=== PATIENT | female | born 1960 | race Caucasian/White ===

== ENCOUNTER → 2020-10-05 | Outpatient (CLI) | payer OTHER ==
[~2020-10-05] MED LIST: ATEN25 PO; Crutch1 EACH MISC; LOVA40 PO; NAPR500 PO; Norco 5-325 Ta1 EACH PO; Zofran Odt4 MG PO
[2020-10-05 14:16] LABS: Source, Urine Clean Catch
[2020-10-05 14:37] LABS: Appearance, Urine Hazy (Clear); Bacteria Rare /hpf; Bilirubin, Urine Neg (Neg); Blood, Urine 2+ (Neg); Color, Urine Yellow (P-Yellow); Glucose Qualitative, Urine Neg (Normal); Ketones, Urine Neg (Neg); Leukocyte Esterase, Urine 2+ (Neg); Nitrite, Urine Neg (Neg); Protein, Urine Neg (Neg); Specific Gravity, Urine 1.015 (1.003-1.022); Squamous Epithelial Cells Rare /hpf (Few); Urobilinogen, Urine NORM (Normal)
== END ==
LOC: LAB SHORT 13:58 → LAB EV 13:58
PROVIDERS: Nurse Practitioner Family
DX: L03.116 Cellulitis of left lower limb (principal); I77.6 Arteritis, unspecified
CPT/HCPCS: 81001

== ENCOUNTER → 2022-06-20 | Outpatient (CLI) | payer OTHER ==
[2022-06-20 11:15] LABS: BASOPHILS ABSOLUTE AUTO 0.04 K/mm3 (0.00-0.23); BASOPHILS PERCENT AUTO 1 % (0-2); EOSINOPHILS ABSOLUTE AUTO 0.08 K/mm3 (0.00-0.68); EOSINOPHILS PERCENT AUTO 2 % (0-6); Hematocrit 31.8 % (33.0-51.0); Hemoglobin 10.9 g/dL (11.5-16.0); IMMATURE GRAN PERCENT AUTO 0 % (0-1); LYMPHOCYTES ABSOLUTE AUTO 0.83 K/mm3 (0.84-5.20); LYMPHOCYTES PERCENT AUTO 20 % (21-46); MONOCYTES ABSOLUTE AUTO 0.55 K/mm3 (0.16-1.47); MONOCYTES PERCENT AUTO 13 % (4-13); Mean Corpuscular HGB 33.3 pg (26.0-34.0); Mean Corpuscular HGB Conc 34.3 g/dL (31.5-36.5); Mean Corpuscular Volume 97 fL (80-100); Mean Platelet Volume 10.8 fL (9.1-12.4); NEUTROPHILS ABSOLUTE AUTO 2.72 K/mm3 (1.96-9.15); NEUTROPHILS PERCENT AUTO 65 % (41-73); Platelet Count 114 K/mm3 (150-400); RDW Coefficient Variation 12.9 % (11.7-14.2); RDW Standard Deviation 46.1 fL (35.1-46.3); Red Blood Cell Count 3.27 M/mm3 (3.80-5.20); White Blood Cell Count 4.22 K/mm3 (4.00-11.30)
[2022-06-20 11:28] LABS: Albumin, Blood 3.5 g/dL (3.4-5.0); Albumin/Globulin Ratio 0.8 (0.8-1.8); Bilirubin, Total 2.3 mg/dL (0.1-1.0); Bun/Creatinine Ratio 17.9 (12.0-20.0); Calcium, Blood 9.6 mg/dL (8.5-10.1); Creatinine, Blood 1.06 mg/dL (0.40-1.00); Globulin, Blood 4.5 g/dL (2.2-4.0)
== END | disposition home or self-care (01) ==
LOC: LAB SHORT 11:08
PROVIDERS: Chiropractor
DX: N39.0 Urinary tract infection, site not specified (principal)
CPT/HCPCS: 80053; 85025

== ENCOUNTER → 2022-07-19 | Outpatient (CLI) | payer OTHER ==
[2022-07-19 09:49] LABS: BASOPHILS ABSOLUTE AUTO 0.02 K/mm3 (0.00-0.23); BASOPHILS PERCENT AUTO 0 % (0-2); EOSINOPHILS ABSOLUTE AUTO 0.01 K/mm3 (0.00-0.68); EOSINOPHILS PERCENT AUTO 0 % (0-6); Hematocrit 28.9 % (33.0-51.0); IMMATURE GRAN ABSOLUTE AUTO 0.03 K/mm3 (0.00-0.10); IMMATURE GRAN PERCENT AUTO 0 % (0-1); LYMPHOCYTES ABSOLUTE AUTO 0.61 K/mm3 (0.84-5.20); LYMPHOCYTES PERCENT AUTO 9 % (21-46); MONOCYTES ABSOLUTE AUTO 0.56 K/mm3 (0.16-1.47); MONOCYTES PERCENT AUTO 8 % (4-13); Mean Corpuscular HGB 33.1 pg (26.0-34.0); Mean Corpuscular HGB Conc 34.6 g/dL (31.5-36.5); Mean Corpuscular Volume 96 fL (80-100); Mean Platelet Volume 10.5 fL (9.1-12.4); NEUTROPHILS ABSOLUTE AUTO 5.49 K/mm3 (1.96-9.15); NEUTROPHILS PERCENT AUTO 82 % (41-73); Platelet Count 199 K/mm3 (150-400); RDW Coefficient Variation 13.1 % (11.7-14.2); RDW Standard Deviation 45.7 fL (35.1-46.3); Red Blood Cell Count 3.02 M/mm3 (3.80-5.20); White Blood Cell Count 6.72 K/mm3 (4.00-11.30)
[2022-07-19 09:59] LABS: Albumin, Blood 3.4 g/dL (3.4-5.0); Albumin/Globulin Ratio 0.8 (0.8-1.8); Bilirubin, Total 2.5 mg/dL (0.1-1.0); Bun/Creatinine Ratio 17.6 (12.0-20.0); Calcium, Blood 8.8 mg/dL (8.5-10.1); Creatinine, Blood 1.93 mg/dL (0.40-1.00); Globulin, Blood 4.4 g/dL (2.2-4.0); Potassium, Blood 4.2 mmol/L (3.5-5.5); Total Protein, Blood 7.8 g/dL (6.4-8.2)
[2022-07-19 10:49] LABS: Source, Urine Clean Catch
[2022-07-19 11:42] LABS: Bacteria Mod /hpf; Red Blood Cells, Urine 50-100 /hpf (0-2); Squamous Epithelial Cells Few /hpf (Few)
[2022-07-19 11:43] LABS: Yeast/Fungi Urine Few /hpf
== END | disposition home or self-care (01) ==
LOC: LAB SHORT 09:42 → LAB 09:42
PROVIDERS: Physician Assistant
DX: R31.9 Hematuria, unspecified (principal)
CPT/HCPCS: 80053; 81015; 85025; 87086

== ENCOUNTER 2022-07-25 18:59 | Inpatient (IN) | payer OTHER ==
[~2022-07-25] VITALS: Ht 167.6 cm; Wt 74.2 kg
[2022-07-25 20:07] LABS: BASOPHILS ABSOLUTE AUTO 0.02 K/mm3 (0.00-0.23); BASOPHILS PERCENT AUTO 0 % (0-2); Hemoglobin 10.3 g/dL (11.5-16.0); LYMPHOCYTES PERCENT AUTO 7 % (21-46); MONOCYTES ABSOLUTE AUTO 0.54 K/mm3 (0.16-1.47); MONOCYTES PERCENT AUTO 8 % (4-13); Mean Corpuscular HGB 32.4 pg (26.0-34.0); Mean Corpuscular HGB Conc 34.3 g/dL (31.5-36.5); Mean Corpuscular Volume 94 fL (80-100); Mean Platelet Volume 11.2 fL (9.1-12.4); Platelet Count 111 K/mm3 (150-400); RDW Coefficient Variation 13.9 % (11.7-14.2); RDW Standard Deviation 48.2 fL (35.1-46.3); Red Blood Cell Count 3.18 M/mm3 (3.80-5.20); White Blood Cell Count 6.92 K/mm3 (4.00-11.30)
[2022-07-25 20:13] LABS: EOSINOPHILS PERCENT AUTO 0 % (0-6); IMMATURE GRAN ABSOLUTE AUTO 0.03 K/mm3 (0.00-0.10); IMMATURE GRAN PERCENT AUTO 0 % (0-1); NEUTROPHILS ABSOLUTE AUTO 5.83 K/mm3 (1.96-9.15); NEUTROPHILS PERCENT AUTO 84 % (41-73)
[2022-07-25 20:26] LABS: Alanine Aminotransfer (ALT/SGP 46 U/L (12-78); Albumin, Blood 2.6 g/dL (3.4-5.0); Albumin/Globulin Ratio 0.6 (0.8-1.8); Alk Phos 88 U/L (50-136); Anion Gap 15 mmol/L (6-16); Aspartate Aminotrans (AST/SGOT 102 U/L (12-37); Blood Urea Nitrogen 107 mg/dL (8-24); Bun/Creatinine Ratio 33.6 (12.0-20.0); CO2, Blood 15 mmol/L (21-32); Calcium, Blood 9.1 mg/dL (8.5-10.1); Chloride, Blood 109 mmol/L (98-108); Creatinine, Blood 3.18 mg/dL (0.40-1.00); Globulin, Blood 4.5 g/dL (2.2-4.0); Glomerular Filtration Rate 16 (60-); Glucose, Blood 173 mg/dL (70-99); Potassium, Blood 4.4 mmol/L (3.5-5.5); Sodium, Blood 139 mmol/L (136-145); Total Protein, Blood 7.1 g/dL (6.4-8.2)
[2022-07-25 21:15] LABS: Base Excess Venous -10.6 mmol/L; Bicarbonate Venous 16.9 mmol/L (24.0-30.0); PCO2 Venous 26.6 mmHg (38-42); pH Blood Venous 7.36 (7.34-7.37)
[2022-07-25 21:23] LABS: Ethanol (Alcohol), Blood, Med <3 mg/dL
[2022-07-25 23:53] LABS: Source, Urine Condom Cath
[2022-07-25 23:57] LABS: Bilirubin, Urine Neg (Neg); Blood, Urine 5+ (Neg); Glucose Qualitative, Urine Neg (Neg); Ketones, Urine Neg (Neg); Leukocyte Esterase, Urine 1+ (Neg); Nitrite, Urine Neg (Neg); Protein, Urine 2+ (Neg); Specific Gravity, Urine 1.015 (1.003-1.022); Urobilinogen, Urine 1+ (Normal)
[2022-07-25 23:59] LABS: Appearance, Urine Hazy (Clear); Color, Urine Yellow (P-Yellow)
[2022-07-26 00:05] LABS: Red Blood Cells, Urine 25-50 /hpf (0-2)
[2022-07-26 00:06] LABS: Amorphous Light (0-Heavy); Bacteria Mod /hpf; Squamous Epithelial Cells Few /hpf (Few)
[2022-07-26 00:07] LABS: U Amphetamine Screen Not Detected; U Barbituate Screen Not Detected; U Benzodiazapine Screen DETECTED; U Buprenorphine Screen Not Detected; U Cannabinoids Screen Not Detected; U Cocaine Screen Not Detected; U Methadone Screen Not Detected; U Methamphetamine Screen Not Detected; U Opiates Screen DETECTED; U Oxycodone Screen DETECTED; U Phencyclidine Screen Not Detected; U Propoxyphene Screen Not Detected
[2022-07-26 04:36] LABS: Hematocrit 26.6 % (33.0-51.0); Hemoglobin 9.2 g/dL (11.5-16.0); Mean Corpuscular HGB 32.7 pg (26.0-34.0); Mean Corpuscular HGB Conc 34.6 g/dL (31.5-36.5); Mean Corpuscular Volume 95 fL (80-100); Mean Platelet Volume 11.6 fL (9.1-12.4); Platelet Count 76 K/mm3 (150-400); RDW Coefficient Variation 14.1 % (11.7-14.2); Red Blood Cell Count 2.81 M/mm3 (3.80-5.20); White Blood Cell Count 7.21 K/mm3 (4.00-11.30)
[2022-07-26 04:46] LABS: Albumin, Blood 2.1 g/dL (3.4-5.0); Albumin/Globulin Ratio 0.5 (0.8-1.8); Bilirubin, Total 2.8 mg/dL (0.1-1.0); Bun/Creatinine Ratio 35.7 (12.0-20.0); Creatinine, Blood 2.83 mg/dL (0.40-1.00); Globulin, Blood 3.9 g/dL (2.2-4.0)
--- NOTE | 2022-07-26 05:35 | NUR ---
CARE ASSUMPTION/SHIFT SUMMARY: RECEIVED REPORT FROM JOSE PEARSON IN ED. PATIENT TRANSPORTED BY GURNEY AND SLID TO PCU BED WITH 5 STAFF ASSIST. PATIENT CRYING OUT "NO!" AND "OUCH!" PATIENT APPEARS VERY PAINFUL BUT SAYS, "I'M OKAY" OR DENIES PAIN DESPITE BEING SENSITIVE TO LIGHT TOUCH. ALERT TO SELF. CIWA PROTOCOL IN PLACE. THIRD SPACING PRESENT AND LEFT LEG MORE EDEMATOUS AND HOT TO THE TOUCH THAN RIGHT LEG. CALL PLACED TO DR. YORK TO UPDATE ON PATIENT STATUS AND RECEIVED NEW ORDERS FOR [facility] TO DETERMINE WHETHER PATIENT HAS RHABDO. PATIENT HAS HAD LITTLE URINE OUTPUT AND WAS STRAIGHT CATHED IN ED ~0100. DR. YORK DECLINED ANGUIANO ORDERS AT THIS TIME. VS STABLE, AFEBRILE, MAP >65, RR >20. PATIENT MORE ALERT AT THIS TIME BUT NONSENSICAL IN SPEECH. BED LOW AND ALARM SET. CALL LIGHT IN REACH. WILL CONTINUE TO MONITOR AND REPORT TO ONCOMING RN.
[2022-07-26 06:07] LABS: BAND PERCENT MAN 13 % (0-8); BASOPHILS PERCENT MAN 0 % (0-2); EOSINOPHILS PERCENT MAN 0 % (0-6); LYMPHOCYTES ABSOLUTE MAN 0.36 K/mm3 (0.84-5.20); LYMPHOCYTES PERCENT MAN 5 % (21-46); METAMYELOCYTE ABSOLUTE MAN 0.07 K/mm3 (0.00-0.00); METAMYELOCYTE PERCENT MAN 1 % (0-0); MONOCYTES ABSOLUTE MAN 0.07 K/mm3 (0.16-1.47); MONOCYTES PERCENT MAN 1 % (4-13); SEG NEUTROPHILS PERCENT MAN 80 % (41-73); TOTAL CELLS COUNTED 100
[2022-07-26 10:48] LABS: Hematocrit 27.6 % (33.0-51.0); Hemoglobin 9.5 g/dL (11.5-16.0); Mean Corpuscular HGB Conc 34.4 g/dL (31.5-36.5); Mean Corpuscular Volume 96 fL (80-100); Mean Platelet Volume 11.7 fL (9.1-12.4); Platelet Count 70 K/mm3 (150-400); RDW Coefficient Variation 14.4 % (11.7-14.2); RDW Standard Deviation 50.2 fL (35.1-46.3); Red Blood Cell Count 2.88 M/mm3 (3.80-5.20); White Blood Cell Count 7.72 K/mm3 (4.00-11.30)
[2022-07-26 11:04] LABS: Albumin/Globulin Ratio 0.5 (0.8-1.8); Bilirubin, Total 2.7 mg/dL (0.1-1.0); Bun/Creatinine Ratio 36.1 (12.0-20.0); C-REACTIVE PROTEIN, EXT RANGE 7.19 mg/dL (0.000-0.300); Creatinine, Blood 2.8 mg/dL (0.40-1.00); Globulin, Blood 3.7 g/dL (2.2-4.0); Magnesium, Blood 2.3 mg/dL (1.6-2.4); Phosphorus, Blood 3.9 mg/dL (2.5-4.9); Potassium, Blood 4.2 mmol/L (3.5-5.5); Total Protein, Blood 5.7 g/dL (6.4-8.2)
[2022-07-26 11:16] LABS: BAND PERCENT MAN 8 % (0-8); BASOPHILS PERCENT MAN 0 % (0-2); EOSINOPHILS PERCENT MAN 0 % (0-6); LYMPHOCYTES PERCENT MAN 6 % (21-46); MONOCYTES PERCENT MAN 6 % (4-13); SEG NEUTROPHILS PERCENT MAN 80 % (41-73); TOTAL CELLS COUNTED 100
[2022-07-26 11:21] LABS: EOSINOPHILS PERCENT AUTO 0 % (0-6); IMMATURE GRAN ABSOLUTE AUTO 0.05 K/mm3 (0.00-0.10); IMMATURE GRAN PERCENT AUTO 1 % (0-1); NEUTROPHILS ABSOLUTE AUTO 6.51 K/mm3 (1.96-9.15); NEUTROPHILS PERCENT AUTO 84 % (41-73)
[2022-07-26 12:19] LABS: Source, Urine Foley catheter
[2022-07-26 12:46] LABS: PO2 Arterial 91.9 mmHg (80-100); pH Blood Arterial 7.45 (7.35-7.45)
[2022-07-26 12:47] LABS: PCO2 Arterial 16.7 mmHg (35-45)
[2022-07-26 12:54] LABS: Bilirubin, Urine Neg (Neg); Blood, Urine 5+ (Neg); Glucose Qualitative, Urine Neg (Neg); Ketones, Urine Neg (Neg); Leukocyte Esterase, Urine Neg (Neg); Nitrite, Urine Neg (Neg); Protein, Urine 2+ (Neg); Specific Gravity, Urine 1.015 (1.003-1.022); Urobilinogen, Urine NORM (Normal)
[2022-07-26 13:35] LABS: Appearance, Urine Clear (Clear); Color, Urine Yellow (P-Yellow)
[2022-07-26 13:37] LABS: Red Blood Cells, Urine 50-100 /hpf (0-2)
[2022-07-26 13:38] LABS: Bacteria Mod /hpf; Squamous Epithelial Cells Few /hpf (Few)
--- NOTE | 2022-07-26 15:16 | NUR ---
TRANSFER: REPORT GIVEN TO YULY Montano RN. PT TRANSFERRED TO ICU 4 @6628.
--- NOTE | 2022-07-26 16:21 | NUR ---
NEW PT TRANSFER: PT ARRIVED TO UNIT AT 1508. PT LOOKS CONFUSED AND IS INCOHERENT IN HER SPEECH. THE PT IS RESPONDING TO PAIN OVER ENTIRE BODY; WITH EACH TOUCH PT IS MOANING IN PAIN. THE PT IS NOT ABLE TO FOLLOW SIMPLE COMANDS, LIKE ASKING HER TO OPEN HER EYES OR TO SQUEEZE MY HANDS. THE PT DID RESPOND TO HER NAME AFTER MULTPLE ATTEMPS BY THIS RN, AND REPLIED WITH "WHAT" AFTER THIS RESPONSE THE PT BECAME INCOHERENT IN HER SPEECH AGAIN. THE PT ARRIVED WITH SBP IN THE 80'S AND MAP AROUND 60-63; LEVOPHED WAS BROUGHT WITH THE PT DURING TRANSFER. A PICC LINE WAS PLACED BY LIANNA ANDERSON RN AND LEVOPHED WAS STARTED AT 5 MCG/MIN. PT RESPONDED WELL TO THIS AND NOW HER SBP IN THE 90-100'S WITH MAP 65<. THE PT IS PUTTING OUT URINE THAT IS NANO AND DARK. THE PT HAS HYPOACTIVE BS IN ALL FOUR QUADRANTS. THE PT HAS NOTED 2+ EDEMA IN THE BLE; PEDAL AND TIBIAL PULESE FOUND WITH DOPPLER BILATERALLY. THE PT HAS WARM EXTREMITIES AND CAP REFIL REMAINS < 3 SECONDS. WILL CONTINUE TO MONITOR THROUGHOUT THE SHIFT.
--- NOTE | 2022-07-26 16:48 | NUR ---
PT'S MOTHER MARILUZ AT BEDSIDE. PER MOTHER, PT HAS BEEN LIVING DOWNSTAIRS FROM HER IN MOTHER'S STUDIO APARTMENT. MOTHER REPORTS THAT PT HAS EXPERIENCED INCREASING BACK PAIN AND HAS BEEN DRINKING MORE FOLLOWING THE OF HER S/O. PT HAS BEEN IMMOBILE AND COUCHBOUND FOR 3+WEEKS. MOTHER REPORTS PT'S SPEECH HAS BEEN INCOMPREHESIBLE FOR 3 WEEKS AND PT REPORTEDLY JUST MOANS IN PAIN. MOTHER BRINGS IN "ALL OF PT'S MEDICATION BOTTLES", I BOTTLE OF 25 MG ATENOLOL LAST FILLED IN 2020 SEVERAL DIFFERENT SIZED UNIDENTIFIED PILLS IN BOTTLE , 1 BOTTLE OF OXYCODONE-ACETAMINOPHEN 5-325 FILLED 07/20/22 ORDERED 1/2 TAB Q6PN, BOTTLE HAS ONE RED PILL IN IT, AND 1 BOTTLE OF CIPROFLAXIN PRESCRIBED 06/20/22 WITH 1/ UNIDENTIFIED WHITE PILL. PILL BOTTLES SENT HOME WITH PT'S MOTHER. PT'S SON REPORTS THAT PT DRINKS 1/2-1 PINT VODKA/DAILY. MOTHER EXPRESSES CONCERN REGARDING DISCHARGE PLANNING, DOES NOT FEEL LIKE SHE IS CAPABLE OF PROVIDING CARE PT IS NEEDING. REQUESTING INFORMATION REGARDING SHELTER PLACEMENT, WILL DISCUSS WITH CARE MANAGEMENT.
[2022-07-26 17:05] LABS: C-REACTIVE PROTEIN, EXT RANGE 6.65 mg/dL (0.000-0.300)
[2022-07-26 17:06] LABS: Bun/Creatinine Ratio 40.4 (12.0-20.0); Calcium, Blood 8.5 mg/dL (8.5-10.1); Creatinine, Blood 2.75 mg/dL (0.40-1.00)
--- NOTE | 2022-07-26 17:54 | NUR ---
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
[2022-07-27 03:28] LABS: Hematocrit 21.5 % (33.0-51.0); Hemoglobin 7.5 g/dL (11.5-16.0); Mean Corpuscular HGB 32.6 pg (26.0-34.0); Mean Corpuscular HGB Conc 34.9 g/dL (31.5-36.5); Mean Corpuscular Volume 94 fL (80-100); Platelet Count 55 K/mm3 (150-400); RDW Coefficient Variation 14.4 % (11.7-14.2); RDW Standard Deviation 48.9 fL (35.1-46.3); White Blood Cell Count 6.28 K/mm3 (4.00-11.30)
[2022-07-27 03:43] LABS: Alanine Aminotransfer (ALT/SGP 44 U/L (12-78); Albumin, Blood 2.3 g/dL (3.4-5.0); Albumin/Globulin Ratio 0.8 (0.8-1.8); Alk Phos 61 U/L (50-136); Anion Gap 11 mmol/L (6-16); Aspartate Aminotrans (AST/SGOT 128 U/L (12-37); Bilirubin, Total 2.8 mg/dL (0.1-1.0); Blood Urea Nitrogen 115 mg/dL (8-24); Bun/Creatinine Ratio 46.4 (12.0-20.0); CO2, Blood 20 mmol/L (21-32); CPK Creatine Kinase 421 U/L (26-193); Calcium, Blood 7.8 mg/dL (8.5-10.1); Chloride, Blood 115 mmol/L (98-108); Creatinine, Blood 2.48 mg/dL (0.40-1.00); Globulin, Blood 2.9 g/dL (2.2-4.0); Glomerular Filtration Rate 21 (60-); Glucose, Blood 217 mg/dL (70-99); Magnesium, Blood 2.3 mg/dL (1.6-2.4); Phosphorus, Blood 3.3 mg/dL (2.5-4.9); Potassium, Blood 3.2 mmol/L (3.5-5.5); Sodium, Blood 146 mmol/L (136-145); Total Protein, Blood 5.2 g/dL (6.4-8.2); Vancomycin, Random 15.5 ug/mL
[2022-07-27 04:23] LABS: BAND PERCENT MAN 8 % (0-8); BASOPHILS PERCENT MAN 0 % (0-2); EOSINOPHILS PERCENT MAN 0 % (0-6); LYMPHOCYTES ABSOLUTE MAN 0.25 K/mm3 (0.84-5.20); LYMPHOCYTES PERCENT MAN 4 % (21-46); MONOCYTES ABSOLUTE MAN 0.31 K/mm3 (0.16-1.47); MONOCYTES PERCENT MAN 5 % (4-13); NEUTROPHILS ABSOLUTE MAN 5.71 K/mm3 (1.96-9.15); SEG NEUTROPHILS PERCENT MAN 83 % (41-73); TOTAL CELLS COUNTED 100
--- NOTE | 2022-07-27 05:25 | NUR ---
SHIFT SUMMARY NO OVERNIGHT EVENTS. HAVE BEEN ABLE TO TITRATE LEVO DOWN FROM 7MCC/MIN TO 1MCC/MIN. WILL TRY TO TIRATE OFF. SODIUM BICARB IS STILL RUNNING @ 100. NOTIFIED MD OF MORNING LABS POTASSIUM IS 3.2 20 KCL WAS ORDERED. REPEAT LABS ORDERED FOR 1200. PT IS STILL CONFUSSED WITH INCOMPRENCABLE SPEECH. PT MOANS CONTINUOUSLY AND ANDSWERW YES TO NAME AND SAYS OK WHEN TRYING TO CONSOLE BUT OTHERWISE NO PURPOSEFUL INTERACTION. PT REMAINS ON RA O2 SATURATION >98. BLE DOPPLER PULSES. WILL CONTINUE TO MONITOR AND REPORT OFF TO ONCOMING RN.
--- NOTE | 2022-07-27 09:04 | NUR ---
AM NOTE... ASSUMED CARE OF PT AT 0700, THE PT IS A&O TO SELF AT THIS TIME. WHEN THE PT'S NAME IS STATED TO HER SHE WILL SAY "WHAT?!" THE PT WILL OPEN HER EYES AND LOOK AT STAFF WHEN ASKED BUT WILL NOT FOLLOW ANY OTHER COMMANDS, WHEN ASKED IF SHE COULD STATE HER LAST NAME AND THE PT STATED "I CAN'T!" AND STARTED MOANING. THE PT YELLS OUT AND MOANS WITH ANY SLIGHT TOUCH OR MOVEMENT BUT THE PT IS UNABLE TO LOCALIZE WHAT ACTUALLY HURTS. THE PT IS ON RA WITH O2 SATS >95% L/S CLEAR T/O. SHE IS IN SR IN THE 70'S WITH A STABLE BP MAPS >65 LEVOPHED WAS STOPPED AROUND 0600 PER NOC SHIFT RN REPORT. THE PT HAS 2+ EDEMA NOTED TO HER BLE, PULSES DOPPLER D/T THE EDEMA. BT PRESENT AND HYPOACTIVE, ABD IS VERY TENDER TO TOUCH, EVEN MORE TENDER TO PALPATION. THE PT'S ANGUIANO IS PATENT AND DRAINING TO GRAVITY. WILL CONTINUE TO MONITOR.
[2022-07-27 12:09] LABS: Hematocrit 21.5 % (33.0-51.0); Hemoglobin 7.6 g/dL (11.5-16.0)
[2022-07-27 12:30] LABS: Potassium, Blood 3.2 mmol/L (3.5-5.5)
[2022-07-27 12:43] LABS: BASOPHILS ABSOLUTE AUTO 0.01 K/mm3 (0.00-0.23); BASOPHILS PERCENT AUTO 0 % (0-2); Hematocrit 21.6 % (33.0-51.0); Hemoglobin 7.5 g/dL (11.5-16.0); LYMPHOCYTES ABSOLUTE AUTO 0.65 K/mm3 (0.84-5.20); LYMPHOCYTES PERCENT AUTO 14 % (21-46); MONOCYTES ABSOLUTE AUTO 0.24 K/mm3 (0.16-1.47); MONOCYTES PERCENT AUTO 5 % (4-13); Mean Corpuscular HGB 32.5 pg (26.0-34.0); Mean Corpuscular HGB Conc 34.7 g/dL (31.5-36.5); Mean Corpuscular Volume 94 fL (80-100); RDW Coefficient Variation 14.3 % (11.7-14.2); Red Blood Cell Count 2.31 M/mm3 (3.80-5.20); White Blood Cell Count 4.73 K/mm3 (4.00-11.30)
[2022-07-27 13:11] LABS: Albumin, Blood 2.5 g/dL (3.4-5.0); Albumin/Globulin Ratio 0.8 (0.8-1.8); Bilirubin, Total 2.9 mg/dL (0.1-1.0); Bun/Creatinine Ratio 50.2 (12.0-20.0); Calcium, Blood 8.2 mg/dL (8.5-10.1); Creatinine, Blood 2.33 mg/dL (0.40-1.00); Potassium, Blood 3.2 mmol/L (3.5-5.5); Total Protein, Blood 5.5 g/dL (6.4-8.2)
[2022-07-27 13:19] LABS: EOSINOPHILS PERCENT AUTO 0 % (0-6); IMMATURE GRAN ABSOLUTE AUTO 0.03 K/mm3 (0.00-0.10); IMMATURE GRAN PERCENT AUTO 1 % (0-1); Mean Platelet Volume 13.3 fL (9.1-12.4); NEUTROPHILS PERCENT AUTO 80 % (41-73)
[2022-07-27 13:21] LABS: Platelet Count 46 K/mm3 (150-400)
--- NOTE | 2022-07-27 17:55 | NUR ---
SHIFT SUMMARY... NO ACUTE NEGATIVE CHANGES NOTED THIS SHIFT. THE PT HAS NOT BEEN ON LEVOPHED SINCE 0600, THE PT'S BP HAS BEEN STABLE WITH MAPS >65. THE PT HAS BECOME MORE AWAKE AND ALERT THIS AFTERNOON, THE PT WOKE UP AND WAS TALKING IN SHORT SENTENCES WITH HER SON AND DAUGHTER WHEN THEY WERE HERE. THE PT CONTINUES TO YELL OUT AND MOAN WITH ANY LIGHT TOUCH OR MOVEMENT. DURING THE LAST ASSESSMENT OF THIS SHIFT THIS RN WAS ATTEMPTING TO PROVIDE THE PT ORAL CARE, THIS RN EXPLAINED TO THE PT WHAT ORAL CARE WAS AND ASKED THE PT TO OPEN HER MOUTH FOR THE SWAB, THE PT TIGHTENED HER LIPS AND TURNED HER HEAD AWAY FROM THIS RN. BUT WHEN THIS RN WAS ATTEMPTING TO ASSESS THE PT'S DRYWALL HANGER HELPER THE PT STATED "I CAN'T I DON'T KNOW WHAT YOU ARE ASKING ME TO DO." THIS RN ASKED THE PT "PLEASE SQUEEZE MY FINGERS" AND THE PT STATED AGAIN "I CAN'T I DON'T KNOW WHAT YOU ARE ASKING ME TO DO." THE PT'S ANGUIANO DRAINED 475MLS OF DARK YELLOW URINE THIS SHIFT. 2 OF THE PT'S BLOOD CULTURES CAME BACK POSITIVE FOR GRAM + COCCI IN CLUSTERS, PROVIDER IS AWARE. THE PT'S PLATELETS ALSO DROPPED DOWN TO 47, THE PROVIDER WAS NOTIFIED AND THE PT'S SUB Q HEPARIN WAS STOPPED AND SCDs WERE PLACED ON THE PT'S BLE. THE PT'S MOM, SON AND DAUGHTER WERE AT THE BEDSIDE THIS AFTERNOON THEY WERE UPDATED BY THE PROVIDER. WILL CONTINUE TO MONITOR UNTIL REPORT IS GIVEN TO ONCOMING RN.
[2022-07-27 18:55] LABS: Hematocrit 22.1 % (33.0-51.0); Hemoglobin 7.5 g/dL (11.5-16.0); Mean Corpuscular HGB 32.2 pg (26.0-34.0); Mean Corpuscular HGB Conc 33.9 g/dL (31.5-36.5); Mean Corpuscular Volume 95 fL (80-100); Mean Platelet Volume 12.6 fL (9.1-12.4); RDW Coefficient Variation 14.4 % (11.7-14.2); Red Blood Cell Count 2.33 M/mm3 (3.80-5.20); White Blood Cell Count 4.28 K/mm3 (4.00-11.30)
[2022-07-27 19:03] LABS: Platelet Count 40 K/mm3 (150-400)
[2022-07-27 19:26] LABS: BAND PERCENT MAN 10 % (0-8); BASOPHILS PERCENT MAN 0 % (0-2); EOSINOPHILS PERCENT MAN 0 % (0-6); LYMPHOCYTES % ATYPICAL MANUAL 2 % (0-0); LYMPHOCYTES ABSOLUTE MAN 0.42 K/mm3 (0.84-5.20); LYMPHOCYTES PERCENT MAN 8 % (21-46); MONOCYTES ABSOLUTE MAN 0.25 K/mm3 (0.16-1.47); MONOCYTES PERCENT MAN 6 % (4-13); MYELOCYTE ABSOLUTE MAN 0.04 K/mm3 (0.00-0.00); MYELOCYTE PERCENT MAN 1 % (0-0); NEUTROPHILS ABSOLUTE MAN 3.55 K/mm3 (1.96-9.15); SEG NEUTROPHILS PERCENT MAN 73 % (41-73); TOTAL CELLS COUNTED 100
[2022-07-28 03:29] LABS: Hematocrit 20.7 % (33.0-51.0); Hemoglobin 7.1 g/dL (11.5-16.0); Mean Corpuscular HGB 32.3 pg (26.0-34.0); Mean Corpuscular HGB Conc 34.3 g/dL (31.5-36.5); Mean Corpuscular Volume 94 fL (80-100); Mean Platelet Volume 11.8 fL (9.1-12.4); RDW Coefficient Variation 14.2 % (11.7-14.2); RDW Standard Deviation 47.8 fL (35.1-46.3); White Blood Cell Count 3.61 K/mm3 (4.00-11.30)
[2022-07-28 03:35] LABS: Platelet Count 34 K/mm3 (150-400)
[2022-07-28 03:44] LABS: International Normalized Ratio 2.35; Prothrombin Time Results 23.3 Sec (9.7-11.5)
[2022-07-28 03:46] LABS: Alanine Aminotransfer (ALT/SGP 44 U/L (12-78); Albumin, Blood 2.5 g/dL (3.4-5.0); Albumin/Globulin Ratio 0.9 (0.8-1.8); Alk Phos 60 U/L (50-136); Anion Gap 8 mmol/L (6-16); Aspartate Aminotrans (AST/SGOT 109 U/L (12-37); Bilirubin, Total 2.9 mg/dL (0.1-1.0); Blood Urea Nitrogen 115 mg/dL (8-24); Bun/Creatinine Ratio 57.2 (12.0-20.0); CO2, Blood 29 mmol/L (21-32); Chloride, Blood 110 mmol/L (98-108); Creatinine, Blood 2.01 mg/dL (0.40-1.00); Globulin, Blood 2.8 g/dL (2.2-4.0); Glomerular Filtration Rate 27 (60-); Glucose, Blood 158 mg/dL (70-99); Magnesium, Blood 2.3 mg/dL (1.6-2.4); Phosphorus, Blood 2.7 mg/dL (2.5-4.9); Potassium, Blood 3.2 mmol/L (3.5-5.5); Sodium, Blood 147 mmol/L (136-145); Total Protein, Blood 5.3 g/dL (6.4-8.2); Vancomycin, Random 10.2 ug/mL
[2022-07-28 04:19] LABS: BAND PERCENT MAN 11 % (0-8); BASOPHILS PERCENT MAN 0 % (0-2); EOSINOPHILS ABSOLUTE MAN 0.03 K/mm3 (0.00-0.68); EOSINOPHILS PERCENT MAN 1 % (0-6); LYMPHOCYTES ABSOLUTE MAN 0.21 K/mm3 (0.84-5.20); LYMPHOCYTES PERCENT MAN 6 % (21-46); MONOCYTES ABSOLUTE MAN 0.21 K/mm3 (0.16-1.47); MONOCYTES PERCENT MAN 6 % (4-13); NEUTROPHILS ABSOLUTE MAN 3.14 K/mm3 (1.96-9.15); SEG NEUTROPHILS PERCENT MAN 76 % (41-73); TOTAL CELLS COUNTED 100
--- NOTE | 2022-07-28 05:35 | NUR ---
SHIFT SUMMARY NO ACUTE OVERNIGHT EVENTS PT SLIGHTLY MORE INTERACTIVE COMPAIRED TO LAST NIGHT. PT IS STILL CONFUSSED AND CONSTANTLY MOANING ESPECIALY WITH ANY CARES MOVING BLANKETS CAUSE PT DISTRESS. PT PLATLETS CONTINUE TO DROP CURRENTLY AT 34 DOWN FROM 40 HEMAGOLBIN DOWN 7.1 WBC HAVE DROPPED 3.61. RESULTS TELPHONED TO ARLET AND ABG WAS ORDERED WILL REPORT RESULTS TO ARLET. PT STILL REMAINS ON 100ML/HR OF SODIUM BICARB. WILL CONTINUE TO MONITOR AND REPORT OFF TO ONCOMMING RN
[2022-07-28 05:43] LABS: PCO2 Arterial 31.8 mmHg (35-45); PO2 Arterial 78.1 mmHg (80-100); pH Blood Arterial 7.57 (7.35-7.45)
[2022-07-28 07:02] LABS: IMMATURE RETIC FRACTION 5.2 % (2.3-16.0); RETIC HGB EQUIVALENT 30.9 pg (28.20-36.60); RETICULOCYTE ABSOLUTE 0.0157 M/mm3 (0.0200-0.1100); RETICULOCYTE COUNT PERCENT 0.7 % (0.50-2.50)
--- NOTE | 2022-07-28 09:30 | NUR ---
AM NOTE... ASSUMED CARE OF PT AT 0700, THE PT IS MORE MORE ALERT AND AWAKE THAN SHE WAS YESTERDAY, WHEN THIS RN ENTERED THE ROOM AND SAID GOODMORNING THE PT RESPONDED BACK "GOODMORNING." WHEN THIS RN ASKED HOW THE PT WAS FEELING SHE STATED "MUCH BETTER THAN I DID YESTERDAY." WHEN THIS RN WAS ATTEMPTING TO ASSESS THE PT'S PSYCHIATRY PHYSICIAN THE PT REFUSED TO SQUEEZE HER HANDS SAYING "I CAN'T" THE PT ALSO REFUSED TO FOLLOW ANY DIRECTIONS GIVEN. THE PT IS IN SR IN THE 70'S BP IS STABLE WITH MAPS >65. 2+ EDEMA IS NOTED TO HER BLE, AND DEPENDENT EDEMA IS NOTED TO HER BUE. L/S CLEAR T/O AND THE PT IS ON RA WITH O2 SATS >95%. BT PRESENT AND HYPOACTIVE, ABD IS SLIGHTLY FIRM AND VERY TENDER TO PALPATION IN THE UPPER QUADRANTS. THE PT'S ANGUIANO IS PATENT AND DRAINING TO GRAVITY. DURING THIS ASSESSMENT THIS RN NOTED THE PT HAD A PETECHIAL RASH ON HER BILATERAL BUTTOCKS THAT WAS NOT THERE YESTERDAY, PICTURES WERE TAKEN AND PLACED IN THE CHART. WILL CONTINUE TO MONITOR.
[2022-07-28 12:18] LABS: BASOPHILS ABSOLUTE AUTO 0.01 K/mm3 (0.00-0.23); BASOPHILS PERCENT AUTO 0 % (0-2); Hematocrit 20.5 % (33.0-51.0); Hemoglobin 6.9 g/dL (11.5-16.0); LYMPHOCYTES ABSOLUTE AUTO 0.57 K/mm3 (0.84-5.20); LYMPHOCYTES PERCENT AUTO 16 % (21-46); MONOCYTES ABSOLUTE AUTO 0.23 K/mm3 (0.16-1.47); MONOCYTES PERCENT AUTO 7 % (4-13); Mean Corpuscular HGB 32.1 pg (26.0-34.0); Mean Corpuscular HGB Conc 33.7 g/dL (31.5-36.5); Mean Corpuscular Volume 95 fL (80-100); RDW Coefficient Variation 14.2 % (11.7-14.2); RDW Standard Deviation 49.5 fL (35.1-46.3); Red Blood Cell Count 2.15 M/mm3 (3.80-5.20); White Blood Cell Count 3.56 K/mm3 (4.00-11.30)
[2022-07-28 12:25] LABS: EOSINOPHILS ABSOLUTE AUTO 0.01 K/mm3 (0.00-0.68); EOSINOPHILS PERCENT AUTO 0 % (0-6); IMMATURE GRAN ABSOLUTE AUTO 0.02 K/mm3 (0.00-0.10); IMMATURE GRAN PERCENT AUTO 1 % (0-1); NEUTROPHILS ABSOLUTE AUTO 2.72 K/mm3 (1.96-9.15); NEUTROPHILS PERCENT AUTO 76 % (41-73)
[2022-07-28 12:27] LABS: Platelet Count 30 K/mm3 (150-400)
[2022-07-28 12:31] LABS: International Normalized Ratio 2.38; Prothrombin Time Results 23.6 Sec (9.7-11.5)
[2022-07-28 12:35] LABS: Albumin, Blood 2.7 g/dL (3.4-5.0); Bilirubin, Total 2.9 mg/dL (0.1-1.0); Bun/Creatinine Ratio 53.8 (12.0-20.0); Calcium, Blood 8.5 mg/dL (8.5-10.1); Creatinine, Blood 1.95 mg/dL (0.40-1.00); Globulin, Blood 2.7 g/dL (2.2-4.0); Potassium, Blood 3.9 mmol/L (3.5-5.5); Total Protein, Blood 5.4 g/dL (6.4-8.2)
--- NOTE | 2022-07-28 18:06 | NUR ---
SHIFT SUMMARY.... NO ACUTE NEGATIVE CLINICAL CHANGES ASSESSED SINCE PREVIOUS NOTES. THE PT'S VS HAVE BEEN STABLE T/O THIS SHIFT. THE PT WAS GIVEN 1 UNIT OF PRBCs D/T A HGB OF <7. THE PT IS MUCH MORE AWAKE AND ALERT THIS AFTERNOON, SHE IS ABLE TO HAVE FULL CONVERSATIONS WITH HER FAMILY AND IS SLIGHTLY MORE COOPERATIVE WITH TURNING, MOVING AND FOLLOWING DIRECTIONS. THE PT HAS NOT HAD A BM SINCE PRIOR TO ADMIT, BT ARE PRESENT AND HYPOACTIVE THE PT IS PASSING GAS. PT IS ASKING FOR MORE WATER AND ORANGE JUICE. DR. WEBBER SPOKE WITH THE PT'S MOTHER AND DAUGHTER ABOUT THE PT'S CONDITION, POOR PROGNOSIS AND THE PLAN OF CARE AT THIS TIME. WILL CONTINUE TO MONITOR UNTIL REPORT IS GIVEN TO ONCOMING RN.
[2022-07-29 03:26] LABS: BASOPHILS ABSOLUTE AUTO 0.01 K/mm3 (0.00-0.23); BASOPHILS PERCENT AUTO 0 % (0-2); Hematocrit 22.9 % (33.0-51.0); Hemoglobin 7.8 g/dL (11.5-16.0); LYMPHOCYTES ABSOLUTE AUTO 0.65 K/mm3 (0.84-5.20); LYMPHOCYTES PERCENT AUTO 18 % (21-46); MONOCYTES ABSOLUTE AUTO 0.24 K/mm3 (0.16-1.47); MONOCYTES PERCENT AUTO 7 % (4-13); Mean Corpuscular HGB 31.6 pg (26.0-34.0); Mean Corpuscular HGB Conc 34.1 g/dL (31.5-36.5); Mean Corpuscular Volume 93 fL (80-100); Mean Platelet Volume 12.9 fL (9.1-12.4); RDW Coefficient Variation 15.5 % (11.7-14.2); RDW Standard Deviation 53.2 fL (35.1-46.3); Red Blood Cell Count 2.47 M/mm3 (3.80-5.20); White Blood Cell Count 3.61 K/mm3 (4.00-11.30)
[2022-07-29 03:31] LABS: EOSINOPHILS ABSOLUTE AUTO 0.03 K/mm3 (0.00-0.68); EOSINOPHILS PERCENT AUTO 1 % (0-6); IMMATURE GRAN ABSOLUTE AUTO 0.04 K/mm3 (0.00-0.10); IMMATURE GRAN PERCENT AUTO 1 % (0-1); NEUTROPHILS ABSOLUTE AUTO 2.64 K/mm3 (1.96-9.15); NEUTROPHILS PERCENT AUTO 73 % (41-73); Platelet Count 29 K/mm3 (150-400)
[2022-07-29 03:42] LABS: Albumin, Blood 2.5 g/dL (3.4-5.0); Albumin/Globulin Ratio 0.9 (0.8-1.8); Bilirubin, Total 4.1 mg/dL (0.1-1.0); Bun/Creatinine Ratio 64.1 (12.0-20.0); Calcium, Blood 8.3 mg/dL (8.5-10.1); Creatinine, Blood 1.81 mg/dL (0.40-1.00); Globulin, Blood 2.8 g/dL (2.2-4.0); Magnesium, Blood 2.3 mg/dL (1.6-2.4); Phosphorus, Blood 4.6 mg/dL (2.5-4.9); Potassium, Blood 3.7 mmol/L (3.5-5.5); Total Protein, Blood 5.3 g/dL (6.4-8.2)
--- NOTE | 2022-07-29 05:36 | NUR ---
SHIFT SUMMARY NO ACUTE OVERNIGHT EVENTS. PT HAS REMAINED STABLE VITAL THROUGH OUT SHIFT. PT IS STILL CONFUSSED BUT IS MUCH MORE INTERACTIVE THAN WHAT WITNESS ON PREVIOUS SHIFTS. PT IS STILL SCREAMING DURING TURNS BUT NOT TO QUITE TO VOLUME AND LENGTHS ON PREVIOUS SHIFTS. PLATELETS CONTINUE TO DECREASE MD IS AWARE AND HEMOTOLGY IS FOLLOWING. LARGE BLOOD BLISTERS ARE SPOTTED ON GLUTTS. PT IS ON CONTINOUS ROTATION ON MATRESS ALLONG WITH Q2 TURNS TO MINIMIZE PRESSURE ON AREA. PT HAD SMALL BM THIS AM UNABLE TO COLLECT SAMPLE PT NOTICES SMALL AMOUNT OF AZUL BLOOD WHEN WIPPING. 1 UNIT OF RBC WAS GIVEN ON DAYS AND FOLLOW HEMAGLOBIN IS 7.8. WILL CONTINUE TO MONITOR AND REPORT OFF TO ONCOMING DAY RN
[2022-07-29 07:08] LABS: International Normalized Ratio 2.19; Prothrombin Time Results 21.8 Sec (9.7-11.5)
--- NOTE | 2022-07-29 08:20 | NUR ---
AM NOTE... ASSUMED CARE OF PT AT 0700, THE PT IS A&Ox3 ABLE TO STATE HER NAME/, THE TOWN AND YEAR THIS IS IMPROVED FROM YESTERDAY. THE PT'S VS STABLE AT THIS TIME. SHE IS IN SR IN THE 70'S BP STABLE WITH MAPS >65. THE PT HAS INCREASED DEPENDENT EDEMA NOTED TO HER BUE AND 1+ EDEMA NOTED TO HER BLE. SCDs ARE IN PLACE. BT PRESENT AND HYPOACTIVE, ABD IS SOFT AND TENDER TO PALPATION IN THE UPPER QUADRANT. THE PT'S ANGUIANO IS PATENT AND DRAINING DARK YELLOW ALMOST ORANGE URINE TO GRAVITY. THE PT HAS CLINIMIX RUNNING AT 50MLS/HR AND D5 RUNNING AT 100MLS/HR AT THIS TIME. CALL LIGHT IN REACH WILL CONTINUE TO MONITOR.
[2022-07-29 12:07] LABS: HBSAG SCREEN Negative (Negative); HCV AB 4.1 (0.0-0.9); HEP A AB, IGM Negative (Negative); HEP B CORE AB, TOT Negative (Negative); HEPATITIS C QUANTITATION HCV Not Detected IU/mL (.)
[2022-07-29 12:16] LABS: Hematocrit 23.8 % (33.0-51.0); Hemoglobin 8.2 g/dL (11.5-16.0); Mean Corpuscular HGB 31.9 pg (26.0-34.0); Mean Corpuscular HGB Conc 34.5 g/dL (31.5-36.5); Mean Corpuscular Volume 93 fL (80-100); RDW Coefficient Variation 15.7 % (11.7-14.2); RDW Standard Deviation 52.5 fL (35.1-46.3); Red Blood Cell Count 2.57 M/mm3 (3.80-5.20); White Blood Cell Count 4.01 K/mm3 (4.00-11.30)
[2022-07-29 12:44] LABS: Platelet Count 31 K/mm3 (150-400)
[2022-07-29 12:47] LABS: BAND PERCENT MAN 5 % (0-8); BASOPHILS PERCENT MAN 0 % (0-2); EOSINOPHILS PERCENT MAN 0 % (0-6); LYMPHOCYTES ABSOLUTE MAN 0.88 K/mm3 (0.84-5.20); LYMPHOCYTES PERCENT MAN 22 % (21-46); MONOCYTES PERCENT MAN 5 % (4-13); NEUTROPHILS ABSOLUTE MAN 2.92 K/mm3 (1.96-9.15); SEG NEUTROPHILS PERCENT MAN 68 % (41-73); TOTAL CELLS COUNTED 100
--- NOTE | 2022-07-29 16:37 | NUR ---
SHIFT SUMMARY.... NO ACUTE NEGATIVE CHANGES THIS SHIFT. THE PT'S VS CONTINUE TO BE STABLE. THE PT HAS SLEPT ALL SHIFT, SHE WAKES EASILY TO VERBAL STIMULI. THE PT HAS NOT HAD A BM THIS SHIFT. CLINIMIX AND D5 STILL RUNNING PER ORDERS. THE PT'S ANGUIANO IS PATENT AND DRAINING TO GRAVITY. CALL LIGHT IN REACH WILL CONTINUE TO MONITOR UNTIL REPORT IS GIVEN TO ONCOMING RN.
[2022-07-29 20:42] LABS: Stool Occult Blood Guaiac 1 Neg (Neg)
--- NOTE | 2022-07-29 21:16 | NUR ---
ASSUMED CARE PT SLEEPING AND AROUSABLE TO VERBAL STIMULI. PT RESPONDS TO NAME, BUT UNABLE TO ANSWER WHERE SHE IS/BIRTHDATE. HR AND BP STABLE IN THE 80S AND MAP 65. SPO2 >92% ON RA. PT IS EDEMATOUS ALL OVER AND IS PAINFUL TO REPOSITIONING. PT MOANS OCCASIONALLY WHILE SLEEPING, BUT STATES SHE DOES NOT FEEL PAIN.
--- NOTE | 2022-07-30 00:42 | NUR ---
UPDATE PT HAVING LARGE LIQUID STOOLS. RECTAL TUBE INSERTED.
[2022-07-30 03:21] LABS: BASOPHILS ABSOLUTE AUTO 0.01 K/mm3 (0.00-0.23); BASOPHILS PERCENT AUTO 0 % (0-2); EOSINOPHILS ABSOLUTE AUTO 0.06 K/mm3 (0.00-0.68); EOSINOPHILS PERCENT AUTO 1 % (0-6); Hematocrit 26.1 % (33.0-51.0); Hemoglobin 8.9 g/dL (11.5-16.0); IMMATURE GRAN ABSOLUTE AUTO 0.07 K/mm3 (0.00-0.10); IMMATURE GRAN PERCENT AUTO 1 % (0-1); LYMPHOCYTES PERCENT AUTO 14 % (21-46); MONOCYTES ABSOLUTE AUTO 0.31 K/mm3 (0.16-1.47); MONOCYTES PERCENT AUTO 6 % (4-13); Mean Corpuscular HGB 31.4 pg (26.0-34.0); Mean Corpuscular HGB Conc 34.1 g/dL (31.5-36.5); Mean Corpuscular Volume 92 fL (80-100); Mean Platelet Volume 12.9 fL (9.1-12.4); NEUTROPHILS ABSOLUTE AUTO 4.04 K/mm3 (1.96-9.15); NEUTROPHILS PERCENT AUTO 78 % (41-73); RDW Coefficient Variation 15.4 % (11.7-14.2); Red Blood Cell Count 2.83 M/mm3 (3.80-5.20); White Blood Cell Count 5.19 K/mm3 (4.00-11.30)
[2022-07-30 03:23] LABS: Platelet Count 39 K/mm3 (150-400)
[2022-07-30 03:35] LABS: International Normalized Ratio 2.08; Prothrombin Time Results 20.8 Sec (9.7-11.5)
[2022-07-30 03:46] LABS: Albumin, Blood 2.9 g/dL (3.4-5.0); Albumin/Globulin Ratio 0.9 (0.8-1.8); Bilirubin, Total 4.3 mg/dL (0.1-1.0); Bun/Creatinine Ratio 68.8 (12.0-20.0); Calcium, Blood 8.3 mg/dL (8.5-10.1); Creatinine, Blood 1.73 mg/dL (0.40-1.00); Globulin, Blood 3.1 g/dL (2.2-4.0); Magnesium, Blood 2.2 mg/dL (1.6-2.4); Phosphorus, Blood 5.2 mg/dL (2.5-4.9); Potassium, Blood 3.4 mmol/L (3.5-5.5)
--- NOTE | 2022-07-30 05:36 | NUR ---
SHIFT SUMMARY PT SLEEPING. HR AND BP STABLE. SPO2 >92% ON RA. PT STILL ONLY ABLE TO RESPOND TO NAME AND STATE BIRTHDATE. PT IS EXTREMELY PAINFUL WHEN REPOSITIONING AND HAS HAD LIQUID BROWN STOOLS THROUGHOUT NIGHT. CLINIMIX AND DEXTROSE 5 RUNNING PER ORDER.
--- NOTE | 2022-07-30 06:27 | NUR ---
UPDATE DR. NICE IN TO SEE PT THIS MORNING. SEE NEW ORDERS.
--- NOTE | 2022-07-30 07:50 | NUR ---
AM NOTE... ASSUMED CARE OF PT AT 0700, THE PT IS A&O TO SELF AT THIS TIME, THE PT IS MOANING WHEN STAFF ARE NOT PROVIDING CARE. THE PT IS MORE SOMNOLENT THAN SHE WAS YESTERDAY. THE OUTER CORNERS OF THE PT'S SCLERA ARE STARTING TO TURN YELLOW, THIS IS A CHANGE FROM YESTERDAY WELL. THE PT'S HIPS AND UPPER THIGHS ARE ALSO STARTING TO TURN JUANDICED. THE PT CONTINUES TO BE IN NSR IN THE 70'S-80'S WITH A STABLE BP. 2+ EDEMA NOTED TO THE PT'S BUE AND BLE. SHE IS ON RA WITH O2 SATS >95% L/S ARE CLEAR T/O. BT ARE PRESENT AND HYPOACTIVE, ABD IS TENDER TO PALPATION. RECTAL TUBE IS IN PLACE DRAINING LIQUID BROWN STOOL TO GRAVITY. AT THE BEDSIDE TO ASSESS THE PT THIS AM, PT IS NOW PCU STATUS, NO NEW ORDERS AT THIS TIME. WILL CONTINUE TO MONITOR.
--- NOTE | 2022-07-30 11:42 | NUR ---
PT TRANSFER, PT WAS TAKEN OUT TO PCU, REPORT WAS GIVEN TO SUZI THOMASON. ALL OF THE PT'S BELONGINGS WERE PACKED AND SENT WITH THE PT. THE PT'S FAMIY WAS CALLED TO BE UPDATED BUT NO ONE ANSWERED, VOICEMAILS WERE LEFT ON THE MOTHER MARILUZ AND DAUGHTER LARRY'S PHONES.
--- NOTE | 2022-07-30 11:45 | NUR ---
TRANSFER NOTE RECEIVED REPORT FROM RICHELLE IN THE ICU ABOUT PT. PT ARRIVED IN PCU WITH VSS. SBP IN THE 110'S WITH HR SR 90'S. PT ON RA AND DID NOT DEMONSTRATE SOB OR DYSPNEA UPON ARRIVAL WTIH RA. RECTAL TUBE NOTED TO HAVE MINIMAL LEAKAGE, BUT RETAL TUBE AND ANGUIANO IN PLACE. PICC SITE FREE OF REDNESS OR SWELLING WITH PULSES PRESENT IN BOTH UPPER AND LOWER EXTREM BILAT. LS CLEAR, I HAVE READ THROUGH RICHELLES SHIFT AM ASSESSMENT AND AGREE WITH HER FINDINGS. GAYE
--- NOTE | 2022-07-30 13:15 | NUR ---
UPDATE DR. WEBBER SPOKE TO THE PT'S MOTHER EXTENSIVELY ABOUT THE PT'S PROGNOSIS AND COURSE OF ACTION RELATING TO HER TREATMENT. DR. WEBBER EXPLAINED THE POSSIBIITY OF MOVING TOWARDS COMFORT CARE AND CHANGE OF CODE STATUS. FAMILY EXPRESSED THEIR UNDERSTANDING AND ALL QUESTIONS WERE ANSWERED THOROUGHLY
--- NOTE | 2022-07-30 16:53 | NUR ---
SHIFT SUMMARY PT IS A/Ox2, BUT HAS BEEN SLEEPY/LETHARGIC T/O TIME WITH HER AFTER HER TRANSFER FROM ICU. PT'S RECTAL TUBE IS IN PLACE WITH ONLY MINOR LEAKAGE NOTED EARLIER ON. PT MAINTAIN SPO2 >94 ON RA WITH NO SIGNS OF SOB OR DYSPNEA NOTED. PT IS VERY SENSITIVE TO TOUGH FOR PT GROANS/GRIMACES WITH SLIGHT TOUCHES OR WHEN REPOSITIONING. DR. WEBBER HAD AN EXTENSIVE TALK WITH THE MOTHER OF THE PATIENT ABOUT HER PLAN OF CARE AND POSSIBLE CHANGE TO COMFORT/HOSPICE CARE. MOTHER APPEARED TO AGREE WITH DR. WEBBER'S PLAN, BUT WANTED TO WAIT FOR PT'S NIECE BEFORE MAKING A FINAL DECISION. ALL OF FAMILY'S QUESTIONS HAVE BEEN ANSWERED AT THIS TIME. PT'S PRESSURES HAVE BEEN SOFT BUT STABLE AND HR HAS BEEN IN UPPER 90'S. GAYE ALFONSO
[2022-07-31 04:45] LABS: BASOPHILS PERCENT AUTO 0 % (0-2); EOSINOPHILS ABSOLUTE AUTO 0.08 K/mm3 (0.00-0.68); EOSINOPHILS PERCENT AUTO 1 % (0-6); Hematocrit 20.5 % (33.0-51.0); IMMATURE GRAN ABSOLUTE AUTO 0.08 K/mm3 (0.00-0.10); IMMATURE GRAN PERCENT AUTO 1 % (0-1); LYMPHOCYTES ABSOLUTE AUTO 0.91 K/mm3 (0.84-5.20); LYMPHOCYTES PERCENT AUTO 14 % (21-46); MONOCYTES ABSOLUTE AUTO 0.46 K/mm3 (0.16-1.47); MONOCYTES PERCENT AUTO 7 % (4-13); Mean Corpuscular HGB 31.5 pg (26.0-34.0); Mean Corpuscular HGB Conc 34.1 g/dL (31.5-36.5); Mean Corpuscular Volume 92 fL (80-100); NEUTROPHILS ABSOLUTE AUTO 4.79 K/mm3 (1.96-9.15); NEUTROPHILS PERCENT AUTO 76 % (41-73); RDW Coefficient Variation 15.5 % (11.7-14.2); RDW Standard Deviation 51.5 fL (35.1-46.3); Red Blood Cell Count 2.22 M/mm3 (3.80-5.20); White Blood Cell Count 6.32 K/mm3 (4.00-11.30)
[2022-07-31 04:56] LABS: Mean Platelet Volume 13.2 fL (9.1-12.4)
[2022-07-31 04:57] LABS: Platelet Count 37 K/mm3 (150-400)
[2022-07-31 04:58] LABS: Albumin, Blood 2.7 g/dL (3.4-5.0); Albumin/Globulin Ratio 0.9 (0.8-1.8); Bilirubin, Total 3.5 mg/dL (0.1-1.0); Bun/Creatinine Ratio 60.7 (12.0-20.0); Calcium, Blood 7.9 mg/dL (8.5-10.1); Creatinine, Blood 2.01 mg/dL (0.40-1.00); Globulin, Blood 2.9 g/dL (2.2-4.0); Magnesium, Blood 2.3 mg/dL (1.6-2.4); Phosphorus, Blood 5.7 mg/dL (2.5-4.9); Potassium, Blood 3.5 mmol/L (3.5-5.5); Total Protein, Blood 5.6 g/dL (6.4-8.2)
[2022-07-31 05:00] LABS: International Normalized Ratio 2.29; Prothrombin Time Results 22.8 Sec (9.7-11.5)
--- NOTE | 2022-07-31 10:47 | NUR ---
Pt resting in bed with her eyes closed. Pt wakes to moderate level of verbal stimuli and struggles with keeping her eyes open. Pt attempts verbal communication and only able to mumble one or two unitelligble words. Pt appears significantly lethargic and frail. Spoke with Dr Lloyd and discussed case. Plan to meet with family this afternoon to discuss prognosis and goals of care. Palliative Care will F/U for family meeting.
--- NOTE | 2022-07-31 12:23 | NUR ---
UPDATE SPOKE WITH BHARAT FROM SPEECH THERAPY REGARDING PT'S ABILITY TO SAFELY SWALLOW FLUIDS. BHARAT THOROUGHLY ASSESSED THE PT AND STATED THE PT'S SWALLOWING ABILITY WAS SEVERELY WEAKNED TOO THE POINT WHERE THE PT WOULD EASLIY CHOKE EVEN WITH SIMPLE WATER. PT HAS BEEN VERY LETHARGIC OVER THE LAST COUPLE OF DAYS AND HAS NOW SINCE BEEN MADE NPO IN ORDER TO MAINTAIN HER SAFETY. WILL CONTINUE TO PERFORM ORAL CARE AND MONITOR THE PT
--- NOTE | 2022-07-31 13:35 | NUR ---
UPDATE PT'S FAMILY ARRIVED IN HER ROOM AND REQUESTED TO SPEAK WITH DR. WEBBER ABOUT PT'S PLAN OF CARE. I PROMPLY CALLED DR. WEBBER AND LEFT HIM A VOICE MESSAGE REGARDING THE ISSUE.
--- NOTE | 2022-07-31 15:02 | NUR ---
Joint visit with Dr Lloyd, this PC RN, and family at Pt's bedside. Pt remains with her eyes closed throughout visit. Dr Lloyd reviews plan of care with family and discusses prognosis. Comfort care discussed as an option. Questions answered and family elects to move forward with comfort care. Family educated on comfort care philosophy with V/U made by family. Hospice discussed with family reporting not have the ability to bring Pt home and care for her. Family expresses appreciation and report no other concerns at this time. Palliative Care will remain available.
--- NOTE | 2022-07-31 15:10 | NUR ---
UPDATE LEFT A MESSAGE FOR DR. MAI AT HIS OFFICE AND CALLED DR. NICE WITH AN UPDATE OF PT'S TRANSITION TO COMFORT CARE
--- NOTE | 2022-07-31 16:48 | NUR ---
Spiritual Care request. Pt. is resting, and family welcomes my visit. Family requested that I speak to the Pt. aboiut her marlen. Assessing the family background through questions, I spoke to the Pt. about marlen and belief and the Pt. responded with nods and words. Prayed with the Pt. Pts. daughter displayed evidence of catharsis, and with a calming presence and empathetic listening, the daughter displayed evidence of engagement and hope. Pts. son arrived. Facilitated a life review. Family verbalized gratitude for the spiritual care visit amd requested this can maker return and pray with the Pt. Will remain available to the family.
--- NOTE | 2022-07-31 17:43 | NUR ---
SHIFT SUMMARY PT HAS BEEN VERY LETHARGIC T/O THE SHIFT, RESPONDS TO VERBAL AND PAINFUL STIMULI, BUT HAS A HARD TIME ANSWERING QUESTIONS. PT BP IS STILL SOFT HOLDING AROUND THE 90'S-110'S WITH A HR RANGING FROM SR TO ST. PT MAINTAINS SPO2 >94 ON RA WITH NO SIGNS OF SOB OR DYSPNEA NOTED. DR WEBBER AND AVEL MCDONALD MET WITH THE FAMILY TODAY TO DICUSSS THE PT'S TRAGECTORY AND HER PLAN OF CARE. AFTER THOROUGH DISCUSSION, THE FAMILY AGREED TO TRANSITION PT TO COMFORT CARE. IV FLUIDS AND ANTIBIOTICS WERE DC'd, BUT ANGUIANO AND RECTAL TUBE WILL REMAIN IN PLACE FOR PT'S COMFORT/INCONTINENT PREVENTION. PT HAS BEEN TURNED AND RECEIVED ORAL CARE PER ORDERS. GAYE, NATY T/O THE SHIFT
--- NOTE | 2022-08-01 09:15 | NUR ---
RECEIVED PT AND REPORT FROM PCU NURSE. PATIENT RELAXING IN BED, CALL LIGHT WITHIN REACH
--- NOTE | 2022-08-01 09:30 | NUR ---
PT OPENS EYE'S TO VOICE. NOT MOANING. DOES NOT SEEM TO BE UNCOMFORTABLE. PT TRANSFERED TO ROOM 332. NO SIGN OF DISTRESS.
--- NOTE | 2022-08-01 10:50 | NUR ---
Comfort Care Visit Pt resting in bed with her eyes closed. Pt opens her eyes to verbal stimuli but does not respond verbaly. Pt appears comfortable with no S/S of distress at this time. Palliative Care will remain available.
--- NOTE | 2022-08-01 13:59 | NUR ---
Spiritual Care Visit. Pt. is mostly resting but responds nonverbally when someone speaks. Pts. mother and friend are at bedside. Mother is requesting prayers for healing on behalf of the Pt. Listen empatheticially with a calming presence. Re-establish rapport. Prayed for Pt. and family and normalized the Pt. experience. Educated mother on the role of Palliative Care after mother had some questions. Pts. mother verbalized gratitude for the spiritual care visit. Family requested to get the contact card of nurse Campbell in Palliative Care. I deliver the card to the Pts. room.
--- NOTE | 2022-08-01 18:05 | NUR ---
SHIFT SUMMARY PT HAS BEEN LETHARGIC T/O THE SHIFT WITH ONLY THE OCCASIONAL MOAN/GROANS. PT IS ON COMFORT CARE WITH REPOSITIONING AND ORAL CARE BEING PERFORMED FREQUENTLY. PT'S MOUTH STILL PRODUCES SOME BLOOD AFTER ORAL CARE, MOUTH CLEANED TO REMOVED BLOOD MUCH POSSIBLE. PT'S PAIN HAS BEEN ADEQUATELY MANAGED VIA EMAR. BARRIER CREAM APPLIED TO COCCYX AND ANUS TO PREVENT SKIN BREAKDOWN. NO REDNESS OR SKIN BREAKDOWN NOTED T/O. ANGUIANO AND RECTAL TUBE IN PLACE DRAINING TO GRAVITY. FAMILY HAS BEEN PRESENT MOST OF THE AFTERNOON AND SPOKE WITH DR. WEBBER ABOUT THE PT. ALL QUESTIONS ANSWERED. NADN T/O MY SHIFT
--- NOTE | 2022-08-01 22:35 | NUR ---
pt resting quietly appears comfortable
--- NOTE | 2022-08-01 23:58 | NUR ---
PT ON COMFORT CARE MOANING & APPEARS TO HAVE ANXIETY & PAIN . ORAL SX & CARE LARGE AMTS OF CLOTTED BLOOD REMOVED WITH GENTLE ORAL CARE WITH SX KIT & AIRWAY PATENT. ANGUIANO & RECTAL TUBE PATENT.
--- NOTE | 2022-08-02 05:27 | NUR ---
61 year old PT on comfort care has large amt of old dark blood in mouth tounge & gentle oral care & sx to remove. Some clots present. Scopolimine patch applied & PT medicated several times for pain & anxiety with helpful effect. Mccallum cath & rectal tube patent rectal tube drains large amt of liq dark stool.
--- NOTE | 2022-08-02 05:32 | NUR ---
PT with dark old blood clots present in oral phlarnx sx to remove multiple times & oral sx oral care. PT medicated for pain & anxiety with helpful effect. Rectal tube drains lg amt of thin black liquid. Mccallum cath patent. Nonverbal PT is restless at times. Turned Q 2 hrs .
--- NOTE | 2022-08-02 14:06 | NUR ---
Arrived to Pt room as she has . Pt's mother at bedside. Offered condolences and emotional support. Mother reports daughter is on her way in a family will choose home. Anwered questions and offered therapeutic listening. Mother expresses appreciation and reports no concerns at this time. Mother appears to be grieving appropriately. Palliative Care will remain available.
--- NOTE | 2022-08-02 17:50 | NUR ---
PATIENT PASSED AT 1150. 2 RN VERIFICATION PERFORMED AND INTERVENTION CHARTED. DAUGHTER CALLED TO NOTIFY, BUT NO ANSWER. LEFT MESSAGE TO RETURN CALL TO MEDICAL FLOOR. PATIENT'S MOM ARRIVED WITHIN ABOUT 30 MINUTES OF PATIENT'S PASSING. PATIENT'S MOM REPORTED THAT SHE WOULD NOTIFY ALL OTHER FAMILY MEMBERS. HOME CALLED AND PICKED UP PATIENT AT APPROX 1600 AFTER FAMILY LEFT THE BEDSIDE.
== END 2022-08-02 11:50 | DRG 871 ==
LOC: ER 18:59 → PCU 07-26 01:35 → ICUE 07-26 01:35 → MEDS 07-26 01:35 → PCU 07-26 03:49 → ICUE 07-26 14:48 → PCU 07-30 11:33 → MEDS 08-01 09:36
PROVIDERS: Family Medicine; Hospitalist; Internal Medicine Nephrology; Student in an Organized Health Care Education/Training Program; ADMIT Family Medicine
PROC: 3E03329 Introduction of Other Anti-infective into Peripheral Vein, Percutaneous Approach (ICD-10-PCS; principal; 2022-07-26)
PROC: 3E033XZ Introduction of Vasopressor into Peripheral Vein, Percutaneous Approach (ICD-10-PCS; 2022-07-26)
PROC: 05HY33Z Insertion of Infusion Device into Upper Vein, Percutaneous Approach (ICD-10-PCS; 2022-07-26)
PROC: 0T9B70Z Drainage of Bladder with Drainage Device, Via Natural or Artificial Opening (ICD-10-PCS; 2022-07-26)
PROC: 30233N1 Transfusion of Nonautologous Red Blood Cells into Peripheral Vein, Percutaneous Approach (ICD-10-PCS; 2022-07-28)
DX: A41.01 Sepsis due to Methicillin susceptible Staphylococcus aureus (principal); E43 Unspecified severe protein-calorie malnutrition; G92.8 Other toxic encephalopathy; R65.21 Severe sepsis with septic shock; N17.9 Acute kidney failure, unspecified; E87.0 Hyperosmolality and hypernatremia; D61.818 Other pancytopenia; N39.0 Urinary tract infection, site not specified; M62.82 Rhabdomyolysis; K76.6 Portal hypertension; E87.3 Alkalosis; Z66 Do not resuscitate; Z51.5 Encounter for palliative care; F41.9 Anxiety disorder, unspecified; E86.0 Dehydration; K70.30 Alcoholic cirrhosis of liver without ascites; E78.5 Hyperlipidemia, unspecified; N18.9 Chronic kidney disease, unspecified; E87.6 Hypokalemia; D73.2 Chronic congestive splenomegaly; R33.9 Retention of urine, unspecified; D70.9 Neutropenia, unspecified; I12.9 Hypertensive chronic kidney disease with stage 1 through stage 4 chronic kidney disease, or unspecified chronic kidney disease; E88.09 Other disorders of plasma-protein metabolism, not elsewhere classified; F11.10 Opioid abuse, uncomplicated; F13.10 Sedative, hypnotic or anxiolytic abuse, uncomplicated; D63.1 Anemia in chronic kidney disease; Z68.23 Body mass index [BMI] 23.0-23.9, adult; Z79.899 Other long term (current) drug therapy; M54.9 Dorsalgia, unspecified
CPT/HCPCS: 36415; 36430; 36569; 36600; 51703; 70450; 71046; 72131; 74176; 80048; 80053; 80202; 81001; 82010; 82140; 82248; 82272; 82374; 82550; 82803; 82947; 83605; 83735; 84100; 84132; 84295; 85014; 85018; 85025; 85045; 85060; 85610; 85651; 85730; 86140; 86704; 86708; 86803; 86850; 86900; 86901; 86923; 87040; 87077; 87086; 87147; 87186; 87340; 92526; 92610; 93005; 93010; 93306; 96361; 96374; 97163; 97530; 99285-25; A9270; C1751; G0480; J0696; J0881; J1644; J2270; J2700; J3370; J3411; J3480; J7030; J7050; J7060; J7070; J7120; P9016; P9047; P9612